=== PATIENT | female | born 1935 | race Caucasian/White ===

== ENCOUNTER 2024-02-15 18:55 | Inpatient (IN) | payer MEDICARE ==
[~2024-02-15] VITALS: Ht 152.4 cm; Wt 44.5 kg
[2024-02-15] MEDS ORDERED: MAGN400O6 PO (19:42)
[2024-02-15] MEDS ORDERED: ESCI10TA PO (19:42)
[2024-02-15] MEDS ORDERED: VALS160T2 PO (19:42)
[2024-02-15] MEDS ORDERED: FERR325T24 PO (19:42)
[2024-02-15] MEDS ORDERED: TRAZ-182 PO (19:42)
[2024-02-15] MEDS ORDERED: SENN-301 PO (19:42)
[2024-02-15] MEDS ORDERED: BECL10.6 IH (19:42)
[2024-02-15] MEDS ORDERED: NIFE30TA91 PO (19:42)
[2024-02-15] MEDS ORDERED: CHOL100062 PO (19:42)
[2024-02-15] MEDS ORDERED: ACET-73 PO (19:42)
[2024-02-15] MEDS ORDERED: ATOR40TA PO (19:42)
[2024-02-15] MEDS ORDERED: METO-357 PO (19:42)
[2024-02-15] MEDS ORDERED: ASCO500T10 PO (19:42)
[2024-02-15] MEDS ORDERED: RISP0.5T5 PO (19:42)
[2024-02-15] MEDS ORDERED: MELA1TAB15 PO (19:42)
[2024-02-15] MEDS ORDERED: LORA-258 PO (19:42)
[2024-02-15] MEDS ORDERED: BISA10SU11 RC (19:42)
[2024-02-15] MEDS ORDERED: NA P133E RC (19:42)
[2024-02-15] MEDS ORDERED: BUSP5TAB3 PO (19:42)
[2024-02-15] MEDS ORDERED: SACC250C9 PO (19:43)
[2024-02-15 19:54] LABS: BASOPHILS # (AUTO) 0.1 K/uL (0.0-0.2); BASOPHILS % (AUTO) 0.9 % (0.0-2.0); EOSINOPHILS # (AUTO) 0.6 K/uL (0.0-0.7); EOSINOPHILS % (AUTO) 6.4 % (0.0-6.0); HEMATOCRIT 28 % (33-45); HEMOGLOBIN 8.9 g/dL (11.5-14.8); LYMPHOCYTES % (AUTO) 10.6 % (20.0-44.0); MEAN CORPUSCULAR HEMOGLOBIN 31 PG (26.0-33.0); MEAN CORPUSCULAR HGB CONC 32 g/dl (31.0-36.0); MEAN CORPUSCULAR VOLUME 94 fL (82-100); MONOCYTES # (AUTO) 1.1 K/uL (0.1-1.30); MONOCYTES % (AUTO) 11.8 % (2.0-12.0); NEUTROPHILS # (AUTO) 6.5 K/uL (1.8-8.9); NEUTROPHILS % (AUTO) 70.3 % (43.0-81.0); PLATELET COUNT (AUTO) 243 K/uL (150-450); RED BLOOD CELL COUNT(AUTO) 2.93 MIL/uL (4.0-5.2); RED CELL DISTRIBUTION WIDTH 14.4 % (11.5-15.0); WHITE BLOOD COUNT (AUTO) 9.3 K/uL (4.3-11.0)
[2024-02-15 20:01] LABS: CALCIUM, SERUM 8.9 mg/dL (8.5-10.1); CARBON DIOXIDE 27 mmol/L (21-32); CHLORIDE 102 mmol/L (98-107); CREATININE 1.4 mg/dL (0.6-1.3); GLUCOSE 96 mg/dL (74-106); POTASSIUM 4.8 mmol/L (3.5-5.1); SODIUM SERUM 135 mmol/L (136-145)
[2024-02-15 20:07] LABS: ACETAMINOPHEN <10 ug/ml (10-30); ALANINE AMINOTRANSFERASE 27 U/L (12-78); ALBUMIN 2.9 g/dL (3.4-5.0); ALCOHOL, BLOOD < 3 mg/dL (0-10); ALKALINE PHOSPHATASE 64 U/L (46-116); ASPARTATE AMINOTRANSFERASE 24 U/L (15-37); BILIRUBIN,DIRECT 0.1 mg/dL (0.0-0.2); BILIRUBIN,TOTAL 0.6 mg/dL (0.2-1.0); SALICYLATE 0.2 mg/dL (2.8-20.0); TOTAL PROTEIN, SERUM 6.4 g/dL (6.4-8.2)
[2024-02-15 20:13] LABS: UREA NITROGEN, BLOOD 44 mg/dL (7-18)
[2024-02-15 23:50] LABS: APPEARANCE,URINE CLEAR (CLEAR); BILIRUBIN,URINE NEGATIVE (NEGATIVE); BLOOD, URINE 1+ Ery/uL (NEGATIVE); COLOR,URINE YELLOW (YELLOW); KETONES,URINE NEGATIVE (NEGATIVE); LEUKOCYTE ESTERASE ,URINE 1+ (NEGATIVE); NITRITE, URINE NEGATIVE (NEGATIVE); PH,URINE 7.5 (5.0-8.0); PROTEIN,URINE NEGATIVE (NEGATIVE); UGLUCOSE NEGATIVE (NEGATIVE); UROBILINOGEN,URINE 0.2 EU/dL (0.2)
[2024-02-16 00:04] LABS: AMPHETAMINE, URINE NEGATIVE (NEGATIVE); BARBITURATE, URINE NEGATIVE (NEGATIVE); BENZODIAZEPINE, URINE NEGATIVE (NEGATIVE); CANNABINOID, URINE NEGATIVE (NEGATIVE); COCCAINE, URINE NEGATIVE (NEGATIVE); OPIATE, URINE NEGATIVE (NEGATIVE); PHENCYCLIDINE SCREEN,URINE NEGATIVE (NEGATIVE)
[2024-02-16 00:27] LABS: ADD URINE CULTURE YES; BACTERIA,URINE Few /HPF (None Seen)
[2024-02-16] MEDS ORDERED: TEMAZEPAM 7.5 MG CAPSULE PO PRN (02:30)
[2024-02-16] MEDS ORDERED: MAG HYDROX/AL HYDROX/SIMETH 30 ML UDC PO PRN (02:30)
[2024-02-16] MEDS ORDERED: MAGNESIUM HYDROXIDE 30 ML UDC PO PRN (02:30)
[2024-02-16] MEDS: BLOOD SUGAR DIAGNOSTIC 1 EACH STRIP IN ONE (02:47)
[2024-02-16] MEDS: LORAZEPAM 1 MG TABLET PO PRN (02:59)
[2024-02-16] MEDS ORDERED: SENNOSIDES/DOCUSATE SODIUM 1 UDTAB TABLET PO PRN (03:00)
[2024-02-16 04:08] VITALS: BP 160/65; TEMP 98.2; O2SAT 95
[2024-02-16 07:48] LABS: ALANINE AMINOTRANSFERASE 21 U/L (12-78); ALBUMIN 2.6 g/dL (3.4-5.0); ALKALINE PHOSPHATASE 71 U/L (46-116); ASPARTATE AMINOTRANSFERASE 23 U/L (15-37); BILIRUBIN,TOTAL 0.7 mg/dL (0.2-1.0); CALCIUM, SERUM 8.9 mg/dL (8.5-10.1); CARBON DIOXIDE 29 mmol/L (21-32); CHLORIDE 105 mmol/L (98-107); GLUCOSE 87 mg/dL (74-106); POTASSIUM 4.1 mmol/L (3.5-5.1); SODIUM SERUM 138 mmol/L (136-145); TOTAL PROTEIN, SERUM 6.2 g/dL (6.4-8.2); UREA NITROGEN, BLOOD 32 mg/dL (7-18)
[2024-02-16 07:59] LABS: CHOLESTEROL 168 mg/dL (<200); HDL CHOLESTEROL 55 mg/dL (40-60); LDL 97 mg/dL (0-99); TRIGLYCERIDES 96 mg/dL (30-150)
[2024-02-16 08:00] VITALS: BP 143/65; TEMP 97.9; O2SAT 98
[2024-02-16] MEDS: CHOLECALCIFEROL 1,000 UNIT TABLET (VIT D3) PO SCH (08:48)
[2024-02-16] MEDS: FERROUS SULFATE (325 MG) 325 MG/TAB TABLET PO SCH (08:48)
[2024-02-16] MEDS: LACTOBACILLUS RHAMNOSUS GG 1 EACH CAP.SPRINK PO SCH (08:48)
[2024-02-16] MEDS: NIFEdipine XL (30MG) 30 MG TAB PO SCH (08:48)
[2024-02-16] MEDS: METOPROLOL SUCCINATE 50 MG TAB.SR.24H PO SCH (08:49)
[2024-02-16] MEDS: VALSARTAN 80 MG TABLET PO SCH (08:49)
[2024-02-16] MEDS: ASCORBIC ACID 500 MG TABLET PO SCH (08:49)
[2024-02-16] MEDS: BUDESONIDE RESPULE INH 0.5 MG/2 ML AMPUL.NEB IH SCH (09:00)
[2024-02-16] MEDS: CEPHALEXIN MONOHYDRATE 250 MG CAPSULE PO SCH (13:42)
[2024-02-16] MEDS: ESCITALOPRAM OXALATE (10 MG) 10 MG TABLET PO SCH (15:00)
[2024-02-16 16:00] VITALS: BP 111/53; TEMP 98.7; O2SAT 97
[2024-02-16] MEDS: busPIRone 5 MG TABLET PO SCH (16:21)
[2024-02-16] MEDS: clonazePAM 0.5 MG TABLET PO PRN (17:34)
[2024-02-16 20:00] VITALS: BP 130/61; TEMP 98.4; O2SAT 95
[2024-02-16] MEDS: ATORVASTATIN 40 MG TABLET PO SCH (21:37)
[2024-02-16] MEDS: risperiDONE 1 MG TABLET PO SCH (21:37)
[2024-02-17 08:00] VITALS: BP 171/78; TEMP 97.8; O2SAT 94
[2024-02-17 16:00] VITALS: BP 103/63; TEMP 97.8; O2SAT 96
[2024-02-17 20:00] VITALS: BP 115/68; TEMP 97.7; O2SAT 95
[2024-02-18] MEDS ORDERED: Z GUARD REMEDY 4 OZ OINT TP PRN (06:30)
[2024-02-18 08:00] VITALS: BP 146/62; TEMP 97.5; O2SAT 96
[2024-02-18] MEDS: Z GUARD REMEDY 4 OZ OINT TP SCH (08:49)
[2024-02-18 16:00] VITALS: BP 101/60; TEMP 97.9; O2SAT 98
[2024-02-18 20:00] VITALS: BP 100/53; TEMP 98; O2SAT 96
[2024-02-18] MEDS: QUETIAPINE FUMARATE 25 MG TABLET PO SCH (20:59)
[2024-02-19 08:00] VITALS: BP 110/59; TEMP 98; O2SAT 96
[2024-02-19] MEDS: OXCARBAZEPINE 150 MG TABLET PO SCH (10:02)
[2024-02-19 16:00] VITALS: BP 113/60; TEMP 98; O2SAT 96
[2024-02-19 20:47] VITALS: BP 123/63; TEMP 98; O2SAT 95
[2024-02-20] MEDS: ACETAMINOPHEN 325 MG TABLET PO PRN (06:26)
[2024-02-20 08:00] VITALS: BP 126/62; TEMP 97.7; O2SAT 96
[2024-02-20 16:03] VITALS: BP 112/53; TEMP 97.8; O2SAT 95
[2024-02-20 20:43] VITALS: BP 138/67; TEMP 98.4; O2SAT 95
[2024-02-20] MEDS: OXCARBAZEPINE 150 MG TABLET PO SCH (21:12)
[2024-02-21 16:00] VITALS: BP 116/64; TEMP 98.7; O2SAT 96
[2024-02-21] MEDS: busPIRone 5 MG TABLET PO SCH (17:00)
[2024-02-21] MEDS: ZIPRASIDONE MESYLATE 20 MG/VIAL VIAL IM PRN (18:07)
[2024-02-21 19:53] VITALS: BP 95/58; TEMP 98.6; O2SAT 96
[2024-02-22 08:00] VITALS: BP 171/67; TEMP 97.7; O2SAT 94
[2024-02-22] MEDS: ZIPRASIDONE MESYLATE 20 MG/VIAL VIAL IM STA (10:18)
[2024-02-22 16:00] VITALS: BP 148/60; TEMP 98.1; O2SAT 95
[2024-02-22] MEDS: ENSURE ENLIVE 237 ML LIQUID (VANILLA) PO SCH (17:01)
[2024-02-22 20:00] VITALS: BP 116/61; TEMP 97.8; O2SAT 96
[2024-02-22] MEDS: QUETIAPINE FUMARATE 25 MG TABLET PO SCH (21:35)
[2024-02-22] MEDS: OXCARBAZEPINE 150 MG TABLET PO SCH (21:36)
[2024-02-23 07:38] LABS: BASOPHILS # (AUTO) 0.1 K/uL (0.0-0.2); BASOPHILS % (AUTO) 0.8 % (0.0-2.0); EOSINOPHILS # (AUTO) 0.5 K/uL (0.0-0.7); EOSINOPHILS % (AUTO) 6.7 % (0.0-6.0); HEMATOCRIT 30 % (33-45); HEMOGLOBIN 10.1 g/dL (11.5-14.8); LYMPHOCYTES # (AUTO) 1.5 K/uL (0.8-4.8); MEAN CORPUSCULAR HEMOGLOBIN 31 PG (26.0-33.0); MEAN CORPUSCULAR HGB CONC 34 g/dl (31.0-36.0); MEAN CORPUSCULAR VOLUME 90 fL (82-100); MONOCYTES # (AUTO) 0.8 K/uL (0.1-1.30); MONOCYTES % (AUTO) 10.7 % (2.0-12.0); NEUTROPHILS # (AUTO) 4.3 K/uL (1.8-8.9); NEUTROPHILS % (AUTO) 60.8 % (43.0-81.0); PLATELET COUNT (AUTO) 246 K/uL (150-450); RED BLOOD CELL COUNT(AUTO) 3.28 MIL/uL (4.0-5.2); RED CELL DISTRIBUTION WIDTH 14.1 % (11.5-15.0); WHITE BLOOD COUNT (AUTO) 7.1 K/uL (4.3-11.0)
[2024-02-23 07:48] LABS: FERRITIN 814 ng/mL (8-388)
[2024-02-23 08:00] VITALS: BP 155/63; TEMP 98; O2SAT 97
[2024-02-23 08:03] LABS: IRON, SERUM 78 ug/dl (50-175); TOTAL IRON BINDING CAPACITY 227 ug/dl (250-450)
[2024-02-23 08:07] LABS: CARBON DIOXIDE 30 mmol/L (21-32); CHLORIDE 104 mmol/L (98-107); CREATININE 1.2 mg/dL (0.6-1.3); GLUCOSE 96 mg/dL (74-106); POTASSIUM 3.9 mmol/L (3.5-5.1); SODIUM SERUM 140 mmol/L (136-145); UREA NITROGEN, BLOOD 27 mg/dL (7-18)
[2024-02-23 16:00] VITALS: BP 115/52; TEMP 98.7; O2SAT 96
[2024-02-23 20:00] VITALS: BP 109/61; TEMP 98.2; O2SAT 96
[2024-02-23] MEDS: TEMAZEPAM 7.5 MG CAPSULE PO PRN (21:21)
[2024-02-24 08:00] VITALS: BP 160/62; TEMP 98.9; O2SAT 97
[2024-02-24] MEDS: BUDESONIDE RESPULE INH 0.5 MG/2 ML AMPUL.NEB IH SCH (11:38)
[2024-02-24 16:00] VITALS: BP 144/62; TEMP 97.6; O2SAT 100
[2024-02-24 20:00] VITALS: BP 118/59; TEMP 97.9; O2SAT 98
[2024-02-25 08:00] VITALS: BP 128/60; TEMP 97.6; O2SAT 95
[2024-02-25 16:00] VITALS: BP 126/61; TEMP 98.6; O2SAT 96
[2024-02-25 20:00] VITALS: BP 148/68; TEMP 98.5; O2SAT 96
[2024-02-25] MEDS: ONDANSETRON 4 MG TAB.RAPDIS PO PRN (22:36)
[2024-02-26 08:00] VITALS: BP 138/60; TEMP 98.2; O2SAT 91
[2024-02-26] MEDS: QUETIAPINE FUMARATE 25 MG TABLET PO SCH (08:56)
[2024-02-26 16:00] VITALS: BP 132/55; TEMP 98.1; O2SAT 92
[2024-02-26 20:31] VITALS: BP 132/60; TEMP 98.2; O2SAT 93
[2024-02-27 08:00] VITALS: BP 166/59; TEMP 97.6; O2SAT 93
[2024-02-27] MEDS: OLANZAPINE 10 MG VIAL IM ONE (09:12)
[2024-02-27 16:00] VITALS: BP 132/60; TEMP 97.7; O2SAT 95
[2024-02-27 21:35] VITALS: BP 116/56; TEMP 98.1; O2SAT 95
[2024-02-28 08:00] VITALS: BP 160/68; TEMP 98.8; O2SAT 98
[2024-02-28] MEDS: ZIPRASIDONE MESYLATE 20 MG/VIAL VIAL IM STA (09:43)
[2024-02-28] MEDS: QUETIAPINE FUMARATE 25 MG TABLET PO SCH ×2 (14:00→21:38)
[2024-02-28 16:00] VITALS: BP 157/74; TEMP 98.1; O2SAT 98
[2024-02-28 20:00] VITALS: BP 107/49; TEMP 98.7; O2SAT 96
[2024-02-28 20:30] VITALS: O2SAT 96
[2024-02-28 20:43] VITALS: O2SAT 99
[2024-02-29 08:00] VITALS: BP 151/54; TEMP 98.6; O2SAT 96
[2024-02-29] MEDS: TOBRAMYCIN OPHTH 5ML 5 ML BOTTLE EACHEYE SCH (08:00)
[2024-02-29] MEDS: OLANZAPINE 10 MG VIAL IM STA (11:07)
[2024-02-29 16:00] VITALS: BP 145/61; TEMP 98; O2SAT 97
[2024-02-29 20:00] VITALS: BP 102/51; TEMP 97.7; O2SAT 96
[2024-03-01 08:00] VITALS: BP 157/71; TEMP 97.8; O2SAT 95
[2024-03-01] MEDS: ZIPRASIDONE MESYLATE 20 MG/VIAL VIAL IM STA (10:00)
[2024-03-01 16:12] VITALS: BP 109/60; TEMP 97.7; O2SAT 94
[2024-03-01 20:17] VITALS: BP 127/61; TEMP 97.9; O2SAT 95
[2024-03-01] MEDS: QUETIAPINE FUMARATE 25 MG TABLET PO SCH (21:56)
[2024-03-02 08:00] VITALS: BP 166/74; TEMP 98.7; O2SAT 95
[2024-03-02] MEDS: GABAPENTIN 100 MG CAPSULE PO SCH (13:52)
[2024-03-02 16:00] VITALS: BP 112/60; TEMP 97.7; O2SAT 96
[2024-03-02 20:00] VITALS: BP 118/65; TEMP 97.9; O2SAT 95
[2024-03-03 07:55] VITALS: O2SAT 96
[2024-03-03 08:00] VITALS: BP 159/64; TEMP 97.7; O2SAT 96
[2024-03-03 08:05] VITALS: O2SAT 99
[2024-03-03 08:45] VITALS: BP 159/64
== END 2024-03-03 13:40 | DRG 885 ==
LOC: ER 18:58 → GPS 02-16 01:33
PROVIDERS: ADMIT Psychiatry & Neurology Psychiatry; ATTEND Internal Medicine
DX: F39 Unspecified mood [affective] disorder (principal); I11.0 Hypertensive heart disease with heart failure; N17.9 Acute kidney failure, unspecified; F03.93 Unspecified dementia, unspecified severity, with mood disturbance; F03.94 Unspecified dementia, unspecified severity, with anxiety; F03.911 Unspecified dementia, unspecified severity, with agitation; E87.1 Hypo-osmolality and hyponatremia; G93.40 Encephalopathy, unspecified; I50.32 Chronic diastolic (congestive) heart failure; F03.918 Unspecified dementia, unspecified severity, with other behavioral disturbance; F03.92 Unspecified dementia, unspecified severity, with psychotic disturbance; F29 Unspecified psychosis not due to a substance or known physiological condition; D64.9 Anemia, unspecified; E78.5 Hyperlipidemia, unspecified; F41.1 Generalized anxiety disorder; G47.00 Insomnia, unspecified; J45.909 Unspecified asthma, uncomplicated; Z86.718 Personal history of other venous thrombosis and embolism; Z87.442 Personal history of urinary calculi; Z88.2 Allergy status to sulfonamides; Z90.12 Acquired absence of left breast and nipple; M89.8X9 Other specified disorders of bone, unspecified site; M81.0 Age-related osteoporosis without current pathological fracture; Z73.6 Limitation of activities due to disability; F33.41 Major depressive disorder, recurrent, in partial remission; H10.89 Other conjunctivitis; Z79.899 Other long term (current) drug therapy; Z20.822 Contact with and (suspected) exposure to COVID-19; F31.9 Bipolar disorder, unspecified
CPT/HCPCS: 36415; 80048-TC; 80053-TC; 80061-TC; 80076-TC; 81001; 82607-TC; 82728-TC; 82962-TC; 83540-TC; 84439-TC; 84443-TC; 85025-TC; 87081-TC; 87086-TC; 94761-TC; 94799-TC; 97112-TC; 97116-TC; 97530-TC; 98960; A6403; G0480; J3486; J3490; Q0162

== ENCOUNTER 2024-03-29 13:39 | Inpatient (IN) | payer MEDICARE ==
[~2024-03-29] VITALS: Ht 167.6 cm; Wt 32.7 kg
[~2024-03-29 13:39] MED LIST: ACET-73 PO; ASCO500T10 PO; ATOR40TA PO; BECL10.6 IH; BISA10SU11 RC; BUSP5TAB3 PO; CHOL100062 PO; ESCI10TA PO; FERR325T24 PO; LORA-258 PO; MAGN400O6 PO; MELA1TAB15 PO; METO-357 PO; NA P133E RC; NIFE30TA91 PO; RISP0.5T5 PO; SACC250C9 PO; SENN-301 PO; TRAZ-182 PO; VALS160T2 PO
[2024-03-29 14:25] LABS: BASOPHILS # (AUTO) 0.1 K/uL (0.0-0.2); BASOPHILS % (AUTO) 0.8 % (0.0-2.0); EOSINOPHILS # (AUTO) 0.1 K/uL (0.0-0.7); EOSINOPHILS % (AUTO) 0.7 % (0.0-6.0); HEMATOCRIT 36 % (33-45); HEMOGLOBIN 11.7 g/dL (11.5-14.8); LYMPHOCYTES % (AUTO) 9.8 % (20.0-44.0); MEAN CORPUSCULAR HEMOGLOBIN 30 PG (26.0-33.0); MEAN CORPUSCULAR HGB CONC 33 g/dl (31.0-36.0); MEAN CORPUSCULAR VOLUME 93 fL (82-100); MONOCYTES # (AUTO) 0.7 K/uL (0.1-1.30); MONOCYTES % (AUTO) 6.9 % (2.0-12.0); NEUTROPHILS # (AUTO) 8.1 K/uL (1.8-8.9); NEUTROPHILS % (AUTO) 81.8 % (43.0-81.0); PLATELET COUNT (AUTO) 315 K/uL (150-450); RED BLOOD CELL COUNT(AUTO) 3.83 MIL/uL (4.0-5.2); RED CELL DISTRIBUTION WIDTH 14.1 % (11.5-15.0); WHITE BLOOD COUNT (AUTO) 9.8 K/uL (4.3-11.0)
[2024-03-29 14:31] LABS: CALCIUM, SERUM 9.5 mg/dL (8.5-10.1); CARBON DIOXIDE 29 mmol/L (21-32); CHLORIDE 103 mmol/L (98-107); CREATININE 1.4 mg/dL (0.6-1.3); GLUCOSE 145 mg/dL (74-106); POTASSIUM 4.1 mmol/L (3.5-5.1); SODIUM SERUM 140 mmol/L (136-145); UREA NITROGEN, BLOOD 29 mg/dL (7-18)
[2024-03-29 14:36] LABS: ALANINE AMINOTRANSFERASE 56 U/L (12-78); ALBUMIN 3.6 g/dL (3.4-5.0); ALCOHOL, BLOOD < 3 mg/dL (0-10); ALKALINE PHOSPHATASE 119 U/L (46-116); ASPARTATE AMINOTRANSFERASE 30 U/L (15-37); BILIRUBIN,DIRECT 0.1 mg/dL (0.0-0.2); BILIRUBIN,TOTAL 0.4 mg/dL (0.2-1.0); TOTAL PROTEIN, SERUM 7.8 g/dL (6.4-8.2)
[2024-03-29 14:37] LABS: ACETAMINOPHEN <10 ug/ml (10-30); SALICYLATE 1.3 mg/dL (2.8-20.0)
[2024-03-29] MEDS ORDERED: GABA300C PO (14:45)
[2024-03-29] MEDS ORDERED: FERR324T PO (14:45)
[2024-03-29] MEDS ORDERED: QUET25TA PO (14:45)
[2024-03-29] MEDS ORDERED: DRON2.5C18 PO (14:45)
[2024-03-29] MEDS ORDERED: MULT-213 PO (14:45)
[2024-03-29] MEDS ORDERED: OXCA150T13 PO (14:45)
[2024-03-29] MEDS ORDERED: ZINC220C6 PO (14:45)
[2024-03-29 15:10] LABS: APPEARANCE,URINE CLEAR (CLEAR); BILIRUBIN,URINE NEGATIVE (NEGATIVE); BLOOD, URINE TRACE-INTA Ery/uL (NEGATIVE); COLOR,URINE YELLOW (YELLOW); KETONES,URINE TRACE mg/dL (NEGATIVE); LEUKOCYTE ESTERASE ,URINE 2+ (NEGATIVE); NITRITE, URINE NEGATIVE (NEGATIVE); PROTEIN,URINE TRACE mg/dl (NEGATIVE); UGLUCOSE NEGATIVE (NEGATIVE); UROBILINOGEN,URINE 0.2 EU/dL (0.2)
[2024-03-29 15:33] LABS: ADD URINE CULTURE YES; BACTERIA,URINE 1+ /HPF (None Seen)
[2024-03-29] MEDS: OLANZAPINE 10 MG VIAL IM ONE (16:10)
[2024-03-29] MEDS: CEPHALEXIN MONOHYDRATE 500 MG CAPSULE PO ONE (16:11)
[2024-03-29] MEDS ORDERED: LORAZEPAM INJ 2 MG/ML VIAL ONE (17:49)
[2024-03-29] MEDS: LORAZEPAM INJ 2 MG/ML VIAL IM ONE (18:02)
[2024-03-29] MEDS ORDERED: MAG HYDROX/AL HYDROX/SIMETH 30 ML UDC PO PRN (19:00)
[2024-03-29] MEDS ORDERED: TEMAZEPAM 7.5 MG CAPSULE PO PRN (19:00)
[2024-03-29] MEDS ORDERED: MAGNESIUM HYDROXIDE 30 ML UDC PO PRN (19:00)
[2024-03-29] MEDS: SENNOSIDES/DOCUSATE SODIUM 1 TAB TABLET PO SCH (21:47)
[2024-03-29] MEDS: BLOOD SUGAR DIAGNOSTIC 1 EACH STRIP IN ONE (22:01)
[2024-03-30 08:00] VITALS: BP 150/64; TEMP 98.2; O2SAT 95
[2024-03-30 08:10] LABS: ALANINE AMINOTRANSFERASE 41 U/L (12-78); ALBUMIN 2.9 g/dL (3.4-5.0); ALKALINE PHOSPHATASE 91 U/L (46-116); ASPARTATE AMINOTRANSFERASE 26 U/L (15-37); BILIRUBIN,TOTAL 0.3 mg/dL (0.2-1.0); CALCIUM, SERUM 8.8 mg/dL (8.5-10.1); CARBON DIOXIDE 29 mmol/L (21-32); CHLORIDE 107 mmol/L (98-107); GLUCOSE 85 mg/dL (74-106); POTASSIUM 3.7 mmol/L (3.5-5.1); SODIUM SERUM 141 mmol/L (136-145); TOTAL PROTEIN, SERUM 6.2 g/dL (6.4-8.2); UREA NITROGEN, BLOOD 19 mg/dL (7-18)
[2024-03-30] MEDS: FERROUS SULFATE (325 MG) 325 MG/TAB TABLET PO SCH (08:54)
[2024-03-30] MEDS: NIFEdipine XL (30MG) 30 MG TAB PO SCH (08:55)
[2024-03-30] MEDS: METOPROLOL SUCCINATE 50 MG TAB.SR.24H PO SCH (08:55)
[2024-03-30] MEDS: GABAPENTIN 300 MG CAPSULE PO SCH (08:55)
[2024-03-30] MEDS: CEPHALEXIN MONOHYDRATE 250 MG CAPSULE PO SCH (12:24)
[2024-03-30] MEDS: risperiDONE 0.25 MG TABLET PO SCH (13:59)
[2024-03-30 16:00] VITALS: BP 106/61; TEMP 98.2; O2SAT 97
[2024-03-30 16:16] LABS: CHOLESTEROL 225 mg/dL (<200); HDL CHOLESTEROL 69 mg/dL (40-60); LDL 132 mg/dL (0-99); TRIGLYCERIDES 84 mg/dL (30-150)
[2024-03-30 20:00] VITALS: BP 119/69; TEMP 98; O2SAT 98
[2024-03-30] MEDS: DIVALPROEX SODIUM 125 MG CAP.SPRINK PO SCH (21:05)
[2024-03-31 08:00] VITALS: BP 163/64; TEMP 98; O2SAT 100
[2024-03-31] MEDS: Z GUARD REMEDY 4 OZ OINT TP SCH (09:00)
[2024-03-31] MEDS: LORAZEPAM 0.5 MG TABLET PO PRN (14:15)
[2024-03-31 16:00] VITALS: BP 169/68; TEMP 97.7; O2SAT 96
[2024-03-31] MEDS: GLUCERNA SHAKE 237 ML CAN PO SCH (17:15)
[2024-03-31 20:10] VITALS: BP 134/70; TEMP 98; O2SAT 98
[2024-04-01] MEDS: Z GUARD REMEDY 4 OZ OINT TP PRN (06:42)
[2024-04-01 08:00] VITALS: BP 166/66; TEMP 98; O2SAT 98
[2024-04-01 16:00] VITALS: BP 136/63; TEMP 97.7; O2SAT 96
[2024-04-01 21:32] VITALS: BP 122/57; TEMP 97.9; O2SAT 97
[2024-04-02 08:00] VITALS: BP 113/65; TEMP 97.7; O2SAT 94
[2024-04-02 16:00] VITALS: BP 120/68; TEMP 98; O2SAT 97
[2024-04-02 20:25] VITALS: BP 122/62; TEMP 98.2; O2SAT 97
[2024-04-03 08:00] VITALS: BP 135/67; TEMP 98.1; O2SAT 96
[2024-04-03 16:00] VITALS: BP 127/62; TEMP 97.5; O2SAT 97
[2024-04-03 20:58] VITALS: BP 106/58; TEMP 97.9; O2SAT 98
[2024-04-04 08:00] VITALS: BP 179/57; TEMP 98.1; O2SAT 97
[2024-04-04 19:38] VITALS: BP 113/58; TEMP 98.1; O2SAT 98
[2024-04-05 08:02] VITALS: BP 140/65; TEMP 96.7; O2SAT 97
[2024-04-05 16:08] VITALS: BP 133/60; TEMP 98.1; O2SAT 98
[2024-04-05 20:00] VITALS: BP 127/62; TEMP 98.3; O2SAT 98
[2024-04-06 08:00] VITALS: BP 150/77; TEMP 97.9; O2SAT 96
[2024-04-06 16:00] VITALS: BP 132/60; TEMP 98.2; O2SAT 96
[2024-04-06 20:00] VITALS: BP 104/67; TEMP 98; O2SAT 98
[2024-04-07 08:00] VITALS: BP 127/60; TEMP 97.9; O2SAT 95
[2024-04-07 16:00] VITALS: BP 120/60; TEMP 97.7; O2SAT 96
[2024-04-07 20:00] VITALS: BP 89/44; TEMP 97.9; O2SAT 96
[2024-04-08 08:00] VITALS: BP 127/71; TEMP 98; O2SAT 95
[2024-04-08 16:00] VITALS: BP 107/60; TEMP 98.6; O2SAT 96
[2024-04-08 21:10] VITALS: BP 104/55; TEMP 98.4; O2SAT 97
[2024-04-09 08:00] VITALS: BP 105/51; TEMP 97.6; O2SAT 96
[2024-04-09 16:00] VITALS: BP 110/64; TEMP 97.8; O2SAT 97
[2024-04-09] MEDS: GABAPENTIN 100 MG CAPSULE PO ONE (17:25)
[2024-04-09 21:27] VITALS: BP 141/52; TEMP 97.9; O2SAT 97
[2024-04-10 08:00] VITALS: BP 162/59; TEMP 98.7; O2SAT 97
[2024-04-10] MEDS: GABAPENTIN 300 MG CAPSULE PO SCH (09:20)
[2024-04-10 16:00] VITALS: BP 101/52; TEMP 97.9; O2SAT 98
[2024-04-10 21:15] VITALS: BP 101/47; TEMP 97.9; O2SAT 96
[2024-04-11] MEDS: ACETAMINOPHEN 325 MG TABLET PO PRN (06:30)
[2024-04-11 08:00] VITALS: BP 117/56; TEMP 97.7; O2SAT 96
[2024-04-11 16:00] VITALS: BP 146/56; TEMP 98; O2SAT 97
[2024-04-11 20:43] VITALS: BP 98/54; TEMP 96.7; O2SAT 96
[2024-04-11 21:00] VITALS: BP 120/60; TEMP 98; O2SAT 98
[2024-04-12 08:00] VITALS: BP 142/63; TEMP 97.6; O2SAT 94
[2024-04-12 08:38] VITALS: BP 142/63
== END 2024-04-12 14:00 | DRG 885 ==
LOC: ER 13:42 → GPS 18:07
PROVIDERS: ADMIT Psychiatry & Neurology Psychosomatic Medicine; ATTEND Internal Medicine
DX: F29 Unspecified psychosis not due to a substance or known physiological condition (principal); I11.0 Hypertensive heart disease with heart failure; N17.9 Acute kidney failure, unspecified; I50.32 Chronic diastolic (congestive) heart failure; N39.0 Urinary tract infection, site not specified; E44.1 Mild protein-calorie malnutrition; F03.93 Unspecified dementia, unspecified severity, with mood disturbance; F03.94 Unspecified dementia, unspecified severity, with anxiety; M89.8X9 Other specified disorders of bone, unspecified site; M81.0 Age-related osteoporosis without current pathological fracture; Z88.2 Allergy status to sulfonamides; E78.5 Hyperlipidemia, unspecified; J45.909 Unspecified asthma, uncomplicated; Z79.899 Other long term (current) drug therapy; Z88.6 Allergy status to analgesic agent; Z90.12 Acquired absence of left breast and nipple; E88.09 Other disorders of plasma-protein metabolism, not elsewhere classified; E86.9 Volume depletion, unspecified; Z87.442 Personal history of urinary calculi; Z86.718 Personal history of other venous thrombosis and embolism; Z91.81 History of falling; M62.81 Muscle weakness (generalized)
CPT/HCPCS: 36415; 80048-TC; 80053-TC; 80061-TC; 80076-TC; 80164-TC; 81001; 82962-TC; 85025-TC; 97110-TC; 97116-TC; 97530-TC; G0480; J2060; J3490

== ENCOUNTER 2024-05-27 10:09 | Inpatient (IN) | payer MEDICARE ==
[~2024-05-27] VITALS: Ht 160 cm; Wt 44.9 kg
[~2024-05-27 10:09] MED LIST changes: -ACET-73 PO; -ATOR40TA PO; -BECL10.6 IH; -BISA10SU11 RC; -BUSP5TAB3 PO; +DRON2.5C18 PO; -ESCI10TA PO; +FERR324T PO; -FERR325T24 PO; +GABA300C PO; -LORA-258 PO; -MAGN400O6 PO; -MELA1TAB15 PO; +MULT-213 PO; -NA P133E RC; +OXCA150T13 PO; +QUET25TA PO; -RISP0.5T5 PO; -SACC250C9 PO; -TRAZ-182 PO; -VALS160T2 PO; +ZINC220C6 PO
[2024-05-27 11:32] LABS: BASOPHILS % (AUTO) 0.2 % (0.0-2.0); EOSINOPHILS # (AUTO) 0.2 K/uL (0.0-0.7); EOSINOPHILS % (AUTO) 1.7 % (0.0-6.0); HEMATOCRIT 32 % (33-45); HEMOGLOBIN 9.8 g/dL (11.5-14.8); LYMPHOCYTES # (AUTO) 0.6 K/uL (0.8-4.8); LYMPHOCYTES % (AUTO) 5.4 % (20.0-44.0); MEAN CORPUSCULAR HEMOGLOBIN 31 PG (26.0-33.0); MEAN CORPUSCULAR HGB CONC 31 g/dl (31.0-36.0); MEAN CORPUSCULAR VOLUME 100 fL (82-100); MONOCYTES # (AUTO) 1.1 K/uL (0.1-1.30); MONOCYTES % (AUTO) 9.9 % (2.0-12.0); NEUTROPHILS # (AUTO) 9.4 K/uL (1.8-8.9); NEUTROPHILS % (AUTO) 82.8 % (43.0-81.0); PLATELET COUNT (AUTO) 195 K/uL (150-450); RED BLOOD CELL COUNT(AUTO) 3.17 MIL/uL (4.0-5.2); RED CELL DISTRIBUTION WIDTH 14.6 % (11.5-15.0); WHITE BLOOD COUNT (AUTO) 11.3 K/uL (4.3-11.0)
[2024-05-27 11:37] LABS: INR 1.09 (0.91-1.10); PARTIAL THROMBOPLASTIN TIME 28.2 SEC (24.3-34.3); PROTHROMBIN TIME 11.5 SECS (9.2-11.1)
[2024-05-27 11:51] LABS: ALBUMIN 2.7 g/dL (3.4-5.0); BILIRUBIN,DIRECT 0.2 mg/dL (0.0-0.2); BILIRUBIN,TOTAL 0.7 mg/dL (0.2-1.0); CALCIUM, SERUM 8.8 mg/dL (8.5-10.1); CREATININE 1.1 mg/dL (0.6-1.3); POTASSIUM 3.9 mmol/L (3.5-5.1); TOTAL PROTEIN, SERUM 6.6 g/dL (6.4-8.2)
[2024-05-27] MEDS ORDERED: TEMA7.5C12 PO (11:58)
[2024-05-27] MEDS ORDERED: LORA-258 PO (11:58)
[2024-05-27] MEDS ORDERED: ACET325T53 PO (11:58)
[2024-05-27] MEDS ORDERED: METO50TA16 PO (11:58)
[2024-05-27] MEDS ORDERED: DIVA125T32 PO (11:58)
[2024-05-27] MEDS ORDERED: MAG30ORA PO (11:58)
[2024-05-27] MEDS ORDERED: RISP0.5T65 PO (11:58)
[2024-05-27] MEDS ORDERED: FERR325T28 PO (11:58)
[2024-05-27] MEDS ORDERED: MAGN400O6 PO (11:58)
[2024-05-27] MEDS ORDERED: BANA1PAC PO (11:58)
[2024-05-27] MEDS ORDERED: SENNOSIDES/DOCUSATE SODIUM 1 UDTAB TABLET PO PRN (13:30)
[2024-05-27] MEDS ORDERED: ZOLPIDEM TARTRATE 5 MG TABLET PO PRN (13:30)
[2024-05-27] MEDS ORDERED: IV NS 0.9% 1,000 ML IV PRN (13:30)
[2024-05-27] MEDS ORDERED: MAGNESIUM HYDROXIDE 30 ML UDC PO PRN (13:30)
[2024-05-27] MEDS ORDERED: FUROSEMIDE 20 MG/2 ML VIAL ONE (13:30)
[2024-05-27] MEDS ORDERED: Z GUARD REMEDY 4 OZ OINT TP PRN (13:30)
[2024-05-27] MEDS ORDERED: ONDANSETRON HCL/PF 4 MG/2 ML VIAL IVP PRN (13:30)
[2024-05-27] MEDS ORDERED: MAG HYDROX/AL HYDROX/SIMETH 30 ML UDC PO PRN (13:30)
[2024-05-27] MEDS ORDERED: ACETAMINOPHEN 325 MG TABLET PO PRN (13:30)
[2024-05-27] MEDS: FUROSEMIDE 20 MG/2 ML VIAL IV ONE (13:32)
[2024-05-27] MEDS ORDERED: IV NS 0.9% 250 ML IV ONE (13:37)
[2024-05-27] MEDS ORDERED: IOHEXOL-350 100 ML VIAL IV ONE (13:37)
[2024-05-27] MEDS ORDERED: CT SWABBABLE VALVE TRANS SET 1 EA INFUS.SET MC ONE (13:37)
[2024-05-27] MEDS: AZITHROMYCIN 500 MG in IV D5W 250 ML IV SCH (14:00)
[2024-05-27] MEDS: GABAPENTIN 300 MG CAPSULE PO SCH (17:00)
[2024-05-27 18:00] VITALS: BP 122/78; TEMP 98.8; O2SAT 94
[2024-05-27] MEDS: CEFTRIAXONE 1 G in IV D5W 50 ML IV SCH (18:00)
[2024-05-27 20:00] VITALS: BP 137/64; TEMP 98.6; O2SAT 95
[2024-05-27] MEDS: DIVALPROEX SODIUM 125 MG TABLET.DR PO SCH (21:41)
[2024-05-28 07:53] LABS: BASOPHILS % (AUTO) 0.4 % (0.0-2.0); EOSINOPHILS # (AUTO) 0.2 K/uL (0.0-0.7); EOSINOPHILS % (AUTO) 1.9 % (0.0-6.0); HEMATOCRIT 31 % (33-45); HEMOGLOBIN 10.4 g/dL (11.5-14.8); LYMPHOCYTES # (AUTO) 0.6 K/uL (0.8-4.8); LYMPHOCYTES % (AUTO) 5.6 % (20.0-44.0); MEAN CORPUSCULAR HEMOGLOBIN 31 PG (26.0-33.0); MEAN CORPUSCULAR HGB CONC 34 g/dl (31.0-36.0); MEAN CORPUSCULAR VOLUME 92 fL (82-100); MONOCYTES # (AUTO) 1.2 K/uL (0.1-1.30); MONOCYTES % (AUTO) 10.4 % (2.0-12.0); NEUTROPHILS # (AUTO) 9.2 K/uL (1.8-8.9); NEUTROPHILS % (AUTO) 81.7 % (43.0-81.0); PLATELET COUNT (AUTO) 230 K/uL (150-450); RED BLOOD CELL COUNT(AUTO) 3.37 MIL/uL (4.0-5.2); RED CELL DISTRIBUTION WIDTH 13.6 % (11.5-15.0); WHITE BLOOD COUNT (AUTO) 11.3 K/uL (4.3-11.0)
[2024-05-28 08:09] LABS: CALCIUM, SERUM 8.8 mg/dL (8.5-10.1); MAGNESIUM 2.4 mg/dL (1.8-2.4); PHOSPHORUS 3.5 mg/dL (2.5-4.9)
[2024-05-28] MEDS: DOCUSATE SODIUM 100 MG CAPSULE PO SCH (08:56)
[2024-05-28] MEDS: FERROUS SULFATE (325 MG) 325 MG/TAB TABLET PO SCH (08:56)
[2024-05-28] MEDS: SENNOSIDES 8.6 MG TABLET PO SCH (08:57)
[2024-05-28] MEDS: METOPROLOL TARTRATE 50 MG TABLET PO SCH (08:57)
[2024-05-28] MEDS: NIFEdipine XL (30MG) 30 MG TAB PO SCH (08:57)
[2024-05-28] MEDS ORDERED: BUPIVACAINE 0.5 % PF 150 MG/30 ML VIAL ONE (14:32)
[2024-05-28] MEDS ORDERED: ANESTHESIA TRAY IN PYXIS 1 EA TRAY MC ONE (14:32)
[2024-05-28] MEDS ORDERED: ROPIVACAINE HCL 0.5% 5 MG/ML 30ML VIAL ONE (15:55)
[2024-05-28] MEDS ORDERED: FENTANYL PF 100MCG/2ML AMPUL ONE ×2 (15:56→15:57)
[2024-05-28] MEDS ORDERED: ROCURONIUM BROMIDE 50 MG/5 ML ONE (15:56)
[2024-05-28] MEDS ORDERED: TRANEXAMIC ACID 1,000 MG/10 ML VIAL ONE (16:18)
[2024-05-28 20:26] VITALS: BP 152/86; TEMP 98.1; O2SAT 94
[2024-05-28] MEDS: HYDROCODONE/APAP 10/325MG TABLET PO PRN (20:49)
[2024-05-28] MEDS ORDERED: CEFAZOLIN 1 GM VIAL IM SCH (22:30)
[2024-05-29] MEDS ORDERED: CEFAZOLIN 2 GM in IV D5W 100 ML IV SCH (00:35)
[2024-05-29] MEDS: TEMAZEPAM 7.5 MG CAPSULE PO PRN (00:36)
[2024-05-29 07:00] VITALS: BP 158/87; TEMP 98.1; O2SAT 93
[2024-05-29 07:57] LABS: CREATININE 1.2 mg/dL (0.6-1.3); POTASSIUM 4.6 mmol/L (3.5-5.1)
[2024-05-29] MEDS: ENOXAPARIN SODIUM 40 MG/0.4 ML DISP.SYRIN SQ SCH (09:16)
[2024-05-29] MEDS: COLCHICINE 0.6 MG TABLET PO SCH (09:19)
[2024-05-29 11:45] LABS: BASOPHILS % (AUTO) 0.1 % (0.0-2.0); EOSINOPHILS % (AUTO) 0.1 % (0.0-6.0); HEMATOCRIT 26 % (33-45); HEMOGLOBIN 8.6 g/dL (11.5-14.8); LYMPHOCYTES # (AUTO) 0.8 K/uL (0.8-4.8); LYMPHOCYTES % (AUTO) 5.6 % (20.0-44.0); MEAN CORPUSCULAR HEMOGLOBIN 31 PG (26.0-33.0); MEAN CORPUSCULAR HGB CONC 33 g/dl (31.0-36.0); MEAN CORPUSCULAR VOLUME 92 fL (82-100); MONOCYTES # (AUTO) 1.8 K/uL (0.1-1.30); MONOCYTES % (AUTO) 13.2 % (2.0-12.0); PLATELET COUNT (AUTO) 241 K/uL (150-450); RED BLOOD CELL COUNT(AUTO) 2.79 MIL/uL (4.0-5.2); RED CELL DISTRIBUTION WIDTH 13.7 % (11.5-15.0); WHITE BLOOD COUNT (AUTO) 13.6 K/uL (4.3-11.0)
[2024-05-29 14:29] LABS: APPEARANCE,URINE TURBID (CLEAR); BILIRUBIN,URINE NEGATIVE (NEGATIVE); BLOOD, URINE 2+ Ery/uL (NEGATIVE); COLOR,URINE YELLOW (YELLOW); KETONES,URINE NEGATIVE (NEGATIVE); LEUKOCYTE ESTERASE ,URINE 2+ (NEGATIVE); NITRITE, URINE NEGATIVE (NEGATIVE); PH,URINE 5.5 (5.0-8.0); PROTEIN,URINE 2+ mg/dl (NEGATIVE); UGLUCOSE NEGATIVE (NEGATIVE); UROBILINOGEN,URINE 0.2 EU/dL (0.2)
[2024-05-29 14:52] LABS: ADD URINE CULTURE YES; BACTERIA,URINE 1+ /HPF (None Seen); WBC,URINE 51-80 /HPF (0-3)
[2024-05-29 14:53] LABS: SQUAMOUS EPITHELIAL CELL,UR 0-2 /HPF (None Seen)
[2024-05-29 16:00] VITALS: BP 134/79; TEMP 98.2; O2SAT 92
[2024-05-29] MEDS: SOD FERRIC GLUC 125 MG in IV NS 0.9% 100 ML IV SCH (18:17)
[2024-05-29 20:00] VITALS: BP 119/62; TEMP 98.4; O2SAT 91
[2024-05-30 07:00] VITALS: BP 148/64; TEMP 98.2; O2SAT 94
[2024-05-30 08:04] LABS: BASOPHILS % (AUTO) 0.5 % (0.0-2.0); EOSINOPHILS # (AUTO) 0.5 K/uL (0.0-0.7); EOSINOPHILS % (AUTO) 4.6 % (0.0-6.0); HEMATOCRIT 26 % (33-45); HEMOGLOBIN 8.9 g/dL (11.5-14.8); LYMPHOCYTES # (AUTO) 1.3 K/uL (0.8-4.8); LYMPHOCYTES % (AUTO) 12.1 % (20.0-44.0); MEAN CORPUSCULAR HEMOGLOBIN 32 PG (26.0-33.0); MEAN CORPUSCULAR HGB CONC 34 g/dl (31.0-36.0); MEAN CORPUSCULAR VOLUME 94 fL (82-100); MONOCYTES # (AUTO) 1.3 K/uL (0.1-1.30); MONOCYTES % (AUTO) 11.6 % (2.0-12.0); NEUTROPHILS # (AUTO) 7.7 K/uL (1.8-8.9); NEUTROPHILS % (AUTO) 71.2 % (43.0-81.0); PLATELET COUNT (AUTO) 243 K/uL (150-450); RED BLOOD CELL COUNT(AUTO) 2.77 MIL/uL (4.0-5.2); RED CELL DISTRIBUTION WIDTH 13.7 % (11.5-15.0); WHITE BLOOD COUNT (AUTO) 10.8 K/uL (4.3-11.0)
[2024-05-30 16:00] VITALS: BP 111/54; TEMP 98.1; O2SAT 97
[2024-05-30 20:00] VITALS: BP 104/64; TEMP 98.1; O2SAT 95
[2024-05-31 07:38] LABS: BASOPHILS % (AUTO) 0.3 % (0.0-2.0); EOSINOPHILS # (AUTO) 0.2 K/uL (0.0-0.7); EOSINOPHILS % (AUTO) 2.4 % (0.0-6.0); HEMATOCRIT 24 % (33-45); LYMPHOCYTES # (AUTO) 0.8 K/uL (0.8-4.8); LYMPHOCYTES % (AUTO) 8.6 % (20.0-44.0); MEAN CORPUSCULAR HEMOGLOBIN 31 PG (26.0-33.0); MEAN CORPUSCULAR HGB CONC 34 g/dl (31.0-36.0); MEAN CORPUSCULAR VOLUME 91 fL (82-100); MONOCYTES # (AUTO) 1.2 K/uL (0.1-1.30); MONOCYTES % (AUTO) 13.1 % (2.0-12.0); NEUTROPHILS % (AUTO) 75.6 % (43.0-81.0); PLATELET COUNT (AUTO) 258 K/uL (150-450); RED CELL DISTRIBUTION WIDTH 13.2 % (11.5-15.0); WHITE BLOOD COUNT (AUTO) 9.3 K/uL (4.3-11.0)
[2024-05-31 08:00] VITALS: BP 148/71; TEMP 98.2; O2SAT 96
[2024-05-31 09:00] LABS: ALBUMIN 2.4 g/dL (3.4-5.0); BILIRUBIN,TOTAL 0.4 mg/dL (0.2-1.0); CALCIUM, SERUM 8.5 mg/dL (8.5-10.1); CREATININE 0.8 mg/dL (0.6-1.3); MAGNESIUM 2.4 mg/dL (1.8-2.4); PHOSPHORUS 2.6 mg/dL (2.5-4.9); POTASSIUM 3.8 mmol/L (3.5-5.1)
[2024-05-31 16:00] VITALS: BP 133/60; TEMP 97.9; O2SAT 98
[2024-05-31 20:00] VITALS: BP 122/61; TEMP 98.4; O2SAT 97
[2024-06-01 08:00] VITALS: BP 138/65; TEMP 99; O2SAT 95
[2024-06-01 08:46] VITALS: BP 138/65
== END 2024-06-01 16:11 | DRG 521 ==
LOC: ER 11:17 → MED 14:55
PROVIDERS: ADMIT Nurse Practitioner Acute Care; ATTEND Nurse Practitioner Acute Care
PROC: 0SRS0J9 Replacement of Left Hip Joint, Femoral Surface with Synthetic Substitute, Cemented, Open Approach (ICD-10-PCS; principal; 2024-05-28)
DX: S72.002A Fracture of unspecified part of neck of left femur, initial encounter for closed fracture (principal); G93.41 Metabolic encephalopathy; J96.01 Acute respiratory failure with hypoxia; E44.0 Moderate protein-calorie malnutrition; I31.39 Other pericardial effusion (noninflammatory); I50.32 Chronic diastolic (congestive) heart failure; F03.92 Unspecified dementia, unspecified severity, with psychotic disturbance; N39.0 Urinary tract infection, site not specified; W06.XXXA Fall from bed, initial encounter; I11.0 Hypertensive heart disease with heart failure; G40.909 Epilepsy, unspecified, not intractable, without status epilepticus; W18.30XA Fall on same level, unspecified, initial encounter; Y92.129 Unspecified place in nursing home as the place of occurrence of the external cause; E78.5 Hyperlipidemia, unspecified; J45.909 Unspecified asthma, uncomplicated; D63.8 Anemia in other chronic diseases classified elsewhere; E88.09 Other disorders of plasma-protein metabolism, not elsewhere classified; M81.0 Age-related osteoporosis without current pathological fracture; M89.8X9 Other specified disorders of bone, unspecified site; R79.89 Other specified abnormal findings of blood chemistry; R13.10 Dysphagia, unspecified; Z82.49 Family history of ischemic heart disease and other diseases of the circulatory system; Z88.2 Allergy status to sulfonamides; Z88.6 Allergy status to analgesic agent; Z90.12 Acquired absence of left breast and nipple; Z79.899 Other long term (current) drug therapy; F25.9 Schizoaffective disorder, unspecified; E11.9 Type 2 diabetes mellitus without complications
CPT/HCPCS: 36415; 70450-TC; 71045-TC; 72125-TC; 72170-TC; 73502; 73552; 73700-TC; 80048-TC; 80053-TC; 80076-TC; 81001; 83690-TC; 83735-TC; 83880; 84100-TC; 85025-TC; 85730-TC; 86850-TC; 88305-TC; 88311-TC; 93307-TC; 97110-TC; 97116-TC; 97530-TC; A4217; A4223; C1713; C1776; G0378; J0330; J0456; J0690; J0696; J1100; J1650; J1885; J1940; J2405; J2704; J2795; J2916; J3010; J3490; J7030; J7040; J7050; J7060; Q9967

== ENCOUNTER 2024-11-14 20:19 | Inpatient (IN) | payer MEDICARE, OTHER ==
[~2024-11-14] VITALS: Ht 152.4 cm; Wt 44.9 kg
[~2024-11-14 20:19] MED LIST changes: +ACET325T53 PO; -ASCO500T10 PO; +BANA1PAC PO; -CHOL100062 PO; +DIVA125T32 PO; -DRON2.5C18 PO; -FERR324T PO; +FERR325T28 PO; +LORA-258 PO; +MAG30ORA PO; +MAGN400O6 PO; -METO-357 PO; +METO50TA16 PO; -MULT-213 PO; -OXCA150T13 PO; -QUET25TA PO; +RISP0.5T65 PO; +TEMA7.5C12 PO; -ZINC220C6 PO
[2024-11-14 21:11] LABS: PLATELET COUNT (AUTO) 205 K/uL (150-450); RED BLOOD CELL COUNT(AUTO) 3.25 MIL/uL (4.0-5.2); RED CELL DISTRIBUTION WIDTH 13.8 % (11.5-15.0); WHITE BLOOD COUNT (AUTO) 9.0 K/uL (4.3-11.0)
[2024-11-14 21:26] LABS: CALCIUM, SERUM 8.4 mg/dL (8.5-10.1); CREATININE 1.2 mg/dL (0.6-1.3); SODIUM SERUM 144 mmol/L (136-145); UREA NITROGEN, BLOOD 39 mg/dL (7-18)
[2024-11-14 21:31] LABS: ASPARTATE AMINOTRANSFERASE 18 U/L (15-37); TOTAL PROTEIN, SERUM 7.1 g/dL (6.4-8.2)
[2024-11-14 22:20] VITALS: BP 171/76; TEMP 97.7; O2SAT 95
[2024-11-14] MEDS ORDERED: MAGNESIUM HYDROXIDE 30 ML UDC PO PRN (23:30)
[2024-11-14] MEDS ORDERED: ZOLPIDEM TARTRATE 5 MG TABLET PO PRN (23:30)
[2024-11-14] MEDS ORDERED: ONDANSETRON HCL/PF 4 MG/2 ML VIAL IVP PRN (23:30)
[2024-11-14] MEDS ORDERED: ACETAMINOPHEN 325 MG TABLET PO PRN (23:30)
[2024-11-14] MEDS ORDERED: MAG HYDROX/AL HYDROX/SIMETH 30 ML UDC PO PRN (23:30)
[2024-11-14] MEDS ORDERED: Z GUARD REMEDY 4 OZ OINT TP PRN (23:30)
[2024-11-15] MEDS: IV D5/0.45 NACL 1,000 ML IV PRN (00:04)
[2024-11-15] MEDS ORDERED: TEMAZEPAM 7.5 MG CAPSULE PO PRN (01:00)
[2024-11-15] MEDS ORDERED: BANANA PO PRN (01:00)
[2024-11-15] MEDS ORDERED: MAG HYDROX/AL HYDROX/SIMETH 30 ML UDC PO PRN (01:00)
[2024-11-15] MEDS ORDERED: MAGNESIUM HYDROXIDE 30 ML UDC PO PRN (01:00)
[2024-11-15] MEDS: hydrALAZINE HCL IV 20 MG VIAL IV PRN (02:49)
[2024-11-15 07:00] VITALS: BP 123/61; TEMP 97.9; O2SAT 94
[2024-11-15 07:09] LABS: PLATELET COUNT (AUTO) 212 K/uL (150-450); RED BLOOD CELL COUNT(AUTO) 3.54 MIL/uL (4.0-5.2); RED CELL DISTRIBUTION WIDTH 13.6 % (11.5-15.0); WHITE BLOOD COUNT (AUTO) 8.6 K/uL (4.3-11.0)
[2024-11-15 07:10] LABS: CALCIUM, SERUM 8.7 mg/dL (8.5-10.1); CREATININE 0.9 mg/dL (0.6-1.3); PHOSPHORUS 2.1 mg/dL (2.5-4.9); SODIUM SERUM 144.0 mmol/L (136-145); UREA NITROGEN, BLOOD 32.0 mg/dL (7-18)
[2024-11-15] MEDS: PANTOPRAZOLE 40 MG TABLET.DR PO SCH (07:30)
[2024-11-15] MEDS: DIVALPROEX SODIUM 125 MG TABLET.DR PO SCH (08:47)
[2024-11-15] MEDS: FERROUS SULFATE (325 MG) 325 MG/TAB TABLET PO SCH (08:48)
[2024-11-15] MEDS: METOPROLOL TARTRATE 50 MG TABLET PO SCH (08:48)
[2024-11-15] MEDS: ENOXAPARIN SODIUM 30 MG/0.3 ML DISP.SYRIN SQ SCH (08:48)
[2024-11-15] MEDS: GABAPENTIN 300 MG CAPSULE PO SCH (08:49)
[2024-11-15] MEDS: NIFEdipine XL (30MG) 30 MG TAB PO SCH (08:49)
[2024-11-15] MEDS: POTASSIUM CL. PREMIX PERIPHER. 50 ML IV SCH (08:51)
[2024-11-15] MEDS ORDERED: NALO4SPR NS (09:31)
[2024-11-15] MEDS ORDERED: MELA5TAB PO (09:31)
[2024-11-15] MEDS ORDERED: POLY15DR31 EACHEYE (09:31)
[2024-11-15] MEDS ORDERED: LEVO500T90 PO (09:31)
[2024-11-15] MEDS ORDERED: MEMA10TA PO (09:31)
[2024-11-15] MEDS ORDERED: RISP1TAB7 PO (09:31)
[2024-11-15] MEDS ORDERED: LORA-259 PO (09:31)
[2024-11-15] MEDS ORDERED: BENZ0.5T43 PO (09:31)
[2024-11-15] MEDS ORDERED: CRAN250C PO (09:31)
[2024-11-15 16:00] VITALS: BP 167/78; TEMP 98.1; O2SAT 98
[2024-11-15] MEDS: NEUTRA PHOS 1 POWD.PACKET PO ONE (16:16)
[2024-11-15 16:46] LABS: APPEARANCE,URINE CLOUDY (CLEAR); BLOOD, URINE 3+ Ery/uL (NEGATIVE); LEUKOCYTE ESTERASE ,URINE 3+ (NEGATIVE); NITRITE, URINE NEGATIVE (NEGATIVE); UGLUCOSE NEGATIVE (NEGATIVE)
[2024-11-15 16:50] LABS: ADD URINE CULTURE YES; SQUAMOUS EPITHELIAL CELL,UR Rare /HPF (None Seen)
[2024-11-15 16:51] LABS: HYALINE CASTS, URINE Moderate /LPF (None Seen); URINE AMORPHOUS PHOSPHATES Many /HPF (None Seen)
[2024-11-15 17:59] LABS: EOSINOPHIL,URINE None Seen
[2024-11-15 19:07] LABS: CREATININE, URINE 102.3 MG/DL (30.0-125.0); URINE SODIUM, RANDOM 116.0 mmol/l (40-220); URINE TOTAL PROTEIN 364.7 mg/dL (0-11.9)
[2024-11-15 20:00] VITALS: BP 146/68; TEMP 97.9; O2SAT 95
[2024-11-15] MEDS: DIVALPROEX SODIUM 125 MG CAP.SPRINK PO SCH (23:21)
[2024-11-16 06:48] LABS: PLATELET COUNT (AUTO) 217 K/uL (150-450); RED BLOOD CELL COUNT(AUTO) 3.72 MIL/uL (4.0-5.2); RED CELL DISTRIBUTION WIDTH 13.4 % (11.5-15.0); WHITE BLOOD COUNT (AUTO) 7.2 K/uL (4.3-11.0)
[2024-11-16 07:03] LABS: ASPARTATE AMINOTRANSFERASE 11 U/L (15-37); CALCIUM, SERUM 8.3 mg/dL (8.5-10.1); CREATININE 0.8 mg/dL (0.6-1.3); PHOSPHORUS 2.1 mg/dL (2.5-4.9); SODIUM SERUM 143 mmol/L (136-145); TOTAL PROTEIN, SERUM 6.9 g/dL (6.4-8.2); UREA NITROGEN, BLOOD 23 mg/dL (7-18)
[2024-11-16 08:00] VITALS: BP 189/82; TEMP 97.3; O2SAT 96
[2024-11-16] MEDS: POTASSIUM CHLORIDE 20 MEQ TAB.PRT.SR PO SCH (10:23)
[2024-11-16] MEDS: NEUTRA PHOS 1 POWD.PACKET PO ONE (10:23)
[2024-11-16] MEDS: POTASSIUM CHLORIDE 20 MEQ POWDER PACKET PO ONE (10:23)
[2024-11-16 11:04] LABS: SERUM AMMONIA 1 umol/L (11-32)
[2024-11-16] MEDS: CEFTRIAXONE 1 G in IV D5W 50 ML IV SCH (12:16)
[2024-11-16 16:00] VITALS: BP 147/65; TEMP 98.3; O2SAT 93
[2024-11-16 20:00] VITALS: BP 148/56; TEMP 97.5; O2SAT 99
[2024-11-16 21:37] VITALS: BP 148/59; TEMP 97.3; O2SAT 99
[2024-11-17 07:28] LABS: CALCIUM, SERUM 8.0 mg/dL (8.5-10.1); CREATININE 0.7 mg/dL (0.6-1.3); SODIUM SERUM 143.0 mmol/L (136-145); UREA NITROGEN, BLOOD 16.0 mg/dL (7-18)
[2024-11-17 07:30] VITALS: BP_SYST 143; BP_SYST 160; BP_DIAS 65; BP_DIAS 84; TEMP 97.4; TEMP 98.4; O2SAT 100; O2SAT 99
[2024-11-17] MEDS: IV D5/0.45 NACL 1,000 ML IV PRN (12:17)
[2024-11-17 16:23] VITALS: BP 121/58; TEMP 97.7; O2SAT 100
[2024-11-17] MEDS: MEGESTROL ACETATE SUSP 400 MG/10 ML UDC PO SCH (17:59)
[2024-11-17 20:00] VITALS: BP 130/69; TEMP 98.1; O2SAT 97
[2024-11-17] MEDS: ACETAMINOPHEN 325 MG TABLET PO PRN (21:09)
[2024-11-18 08:00] VITALS: BP 148/82; TEMP 97.9; O2SAT 97
[2024-11-18 08:12] VITALS: BP 148/82
[2024-11-18 08:18] LABS: CALCIUM, SERUM 8.5 mg/dL (8.5-10.1); CREATININE 0.7 mg/dL (0.6-1.3); SODIUM SERUM 138.0 mmol/L (136-145); UREA NITROGEN, BLOOD 15.0 mg/dL (7-18)
== END 2024-11-18 12:25 | DRG 640 ==
LOC: ER 20:22 → MED 21:55
PROVIDERS: ADMIT Student in an Organized Health Care Education/Training Program; ATTEND Nurse Practitioner Acute Care
DX: E86.0 Dehydration (principal); G93.41 Metabolic encephalopathy; E44.0 Moderate protein-calorie malnutrition; N17.9 Acute kidney failure, unspecified; N39.0 Urinary tract infection, site not specified; Z16.12 Extended spectrum beta lactamase (ESBL) resistance; I31.39 Other pericardial effusion (noninflammatory); I50.32 Chronic diastolic (congestive) heart failure; D68.59 Other primary thrombophilia; Z68.1 Body mass index [BMI] 19.9 or less, adult; R62.7 Adult failure to thrive; I11.0 Hypertensive heart disease with heart failure; E11.9 Type 2 diabetes mellitus without complications; D63.8 Anemia in other chronic diseases classified elsewhere; E78.5 Hyperlipidemia, unspecified; E87.6 Hypokalemia; E83.39 Other disorders of phosphorus metabolism; E86.1 Hypovolemia; M81.0 Age-related osteoporosis without current pathological fracture; Z74.01 Bed confinement status; Z88.2 Allergy status to sulfonamides; Z90.12 Acquired absence of left breast and nipple; B96.20 Unspecified Escherichia coli [E. coli] as the cause of diseases classified elsewhere; F41.9 Anxiety disorder, unspecified; M62.81 Muscle weakness (generalized); J45.909 Unspecified asthma, uncomplicated; E03.8 Other specified hypothyroidism; Z79.899 Other long term (current) drug therapy; M89.8X9 Other specified disorders of bone, unspecified site; E83.9 Disorder of mineral metabolism, unspecified; G30.9 Alzheimer's disease, unspecified; F02.80 Dementia in other diseases classified elsewhere, unspecified severity, without behavioral disturbance, psychotic disturbance, mood disturbance, and anxiety
CPT/HCPCS: 36415; 70450-TC; 71045-TC; 80048-TC; 80053-TC; 80076-TC; 81001; 82140-TC; 82570-TC; 82607-TC; 83690-TC; 83735-TC; 84100-TC; 84300-TC; 84439-TC; 84443-TC; 84484-TC; 85025-TC; 87081-TC; 87086-TC; 87186-TC; 92526; 92611-TC; 97110-TC; 97112-TC; 97530-TC; A4223; G0378; J0360; J0696; J1650; J3480; J3490; J7040; J7060